=== PATIENT | female | born 1945 | race Caucasian/White ===

== ENCOUNTER 2023-08-15 17:57 | Emergency (ER) | payer MEDICARE, BC, SELFPAY ==
[2023-08-15 18:01] VITALS: BP 122/60
[2023-08-15 18:26] LABS: % Basophils 0.5 % (0-2); % Eosinophils 0.3 % (0-6); % Immature Granulocytes 0.5 % (0-0.5); % Lymphocytes 16.6 % (20.5-51.1); % Monocytes 4.7 % (1.7-9.3); % Neutrophils 77.4 % (42.2-75.2); Absolute Basophils 0.1 10^3/uL (0-0.2); Absolute Immature Granulocytes 0.1 10^3/uL (0-0.05); Absolute Lymphocytes 1.7 10^3/uL (1.2-3.4); Absolute Monocytes 0.5 10^3/uL (0.1-0.6); Hematocrit 34.9 % (37.0-47.0); Hemoglobin 11.6 g/dL (12.0-16.0); Mean Corp Hgb Conc. 33.2 g/dL (33.0-37.0); Mean Corpuscular Hgb 29.2 pg (27.0-31.0); Mean Corpuscular Volume 87.9 fL (81.0-99.0); Mean Platelet Volume 10.1 fL (7.4-10.4); Nucleated Red Blood Cells % 0 %; Platelet Count 244 10^3/uL (130-400); Red Blood Cell Count 3.97 10^6/uL (4.20-5.40); Red Cell Dist. Width 14.4 % (11.5-14.5); White Blood Cell Count 10.3 10^3/uL (4.8-10.8)
[2023-08-15 18:36] LABS: INR 1.05
[2023-08-15 18:44] LABS: ALT (SGPT) 18 U/L (0-35); AST (SGOT) 26 U/L (14-36); Albumin 3.8 g/dl (3.5-5.0); Alkaline Phosphatase 77 U/L (38-126); Blood Urea Nitrogen 13 mg/dl (7-17); Carbon Dioxide 23 mmol/L (22-30); Chloride 108 mmol/L (98-107); Glucose 128 mg/dl (70-99); Sodium 136 mmol/L (135-145); Total Bilirubin 0.6 mg/dl (0.2-1.3); Total Protein 6.2 g/dl (6.3-8.2); eGFR > 60.00
--- NOTE | 2023-08-15 19:59 | ED.GENMED ---
History of Present Illness
General
Chief Complaint: Rectal Bleeding
Source: patient
Exam Limitations: none
Time Seen by Provider: 08/15/23 19:47
Travel History
Have you had any contact with someone who has COVID-19?: No
Do you have any symptoms of coronavirus? Fever > 100 degrees, chills, cough, shortness of breath, sore throat, loss of taste or smell, muscle aches, or headache?: No
History of Present Illness
History of Present Illness:
See MDM
Past History
Past History
ED Past Medical History: CAD and HTN
ED Past Surgical History: Cardiac
Social History
Tobacco: Non-smoker
Alcohol: None
Phy Exam
Physical Exam
Physical Exam:
See MDM
Course
Orders/Labs/Results
Orders:
Orders
08/15/23 18:09
Type+Screen Urgent
08/15/23 18:16
Complete Blood Count/With Diff Urgent
Comprehensive Metabolic Panel Urgent
Prothrombin Time Urgent
Abnormal Lab Results
08/15/23
18:16
RBC 3.97 L 10^6/uL
(4.20-5.40)
Hgb 11.6 L g/dL
(12.0-16.0)
Hct 34.9 L %
(37.0-47.0)
Abs Immat Gran (auto) 0.1 H 10^3/uL
(0-0.05)
Absolute Neuts (auto) 8.0 H 10^3/uL
(1.4-6.5)
Neutrophils % 77.4 H %
(42.2-75.2)
Lymphocytes % 16.6 L %
(20.5-51.1)
Chloride 108 H mmol/L
(98-107)
Glucose 128 H mg/dl
(70-99)
Total Protein 6.2 L g/dl
(6.3-8.2)
08/15/23 18:16
08/15/23 18:16
Vital Signs
Initial and Last Documented VS:
Initial Vital Signs
Pulse Resp BP Pulse Ox
68 18 122/60 96
08/15/23 18:01 08/15/23 18:01 08/15/23 18:01 08/15/23 18:01
Last Documented Vital Signs
Pulse Resp BP Pulse Ox
68 18 122/60 96
08/15/23 18:01 08/15/23 18:01 08/15/23 18:01 08/15/23 18:01
MDM/Problems Addressed
Differential Diagnosis Includes:
HPI and MDM Narrative:
78-year-old female presenting with resolved rectal bleeding. Patient states she had diarrhea earlier in the day and there was some mild bleeding at her rectum. She then had a bowel movement at 1:30 PM and states there was bright blood in the
toilet. She is on aspirin and Plavix for recent cardiac stent. She called her vp training and was instructed to go to the hospital for evaluation. Patient denies abdominal pain or any bleeding since 1:30 PM
Patient is well-appearing nontoxic. She is not on a blood thinner. Hemoglobin is 11.6 which is close to baseline. Had a long discussion with patient in regards to admission for hemoglobin trending versus discharge. Patient states going home. I
did discuss the likelihood of recurrent but discussed strict return precautions. Patient does understand my concerns
Physical exam
General: Well appearing and non-toxic
HEENT: protecting airway
Neck: appears supple
CV: No evidence of cyanosis
Resp: No accessory muscle use
Abd: Non-distended. Soft and nontender
Extremities: No deformities
Neuro: alert
Psych: Normal affect
Skin: Intact
Rectal: Exam performed with nurse project scheduler collect. There is a large external hemorrhoid. Stool is brown but guaiac positive. No active bleeding noted
Problems Addressed including Acute and Chronic Conditions affecting care:
1. Rectal bleeding
Acuity: acute
Prognosis: stable
Details: Symptoms appear to have resolved since 1:30 PM. Hemoglobin stable to baseline
Updates
Had a long discussion with the patient in regards to admission versus discharge. She feels comfortable going home. Discussed talking to her wreath maker. She is already on Preparation H and a stool softener
Differential Diagnosis (but not limited to): Diverticulosis, internal hemorrhoids, external hemorrhoids
Testing considered: CT abdomen/pelvis but she has no abdominal pain or any evidence of brisk bleeding.
Drug therapy (if applicable): OTC meds, please see d/c instruction regarding Rx drugs
Amount and/or Complexity of Data Reviewed
Clinical info obtained from: Patient
External data reviewed: N/A
Labs I independently reviewed (but not limited to): Hemoglobin 11.6
Radiology: N/A
Pulse Ox: not hypoxic
EKG independently reviewed: N/A
Storekeeper Helper: N/A
Critical Care: N/A
Risk of Complication:
Social Determinants of health: Good social support
Discussed with other providers: N/A
Escalation of Care includes Admit/Obs: After being observed in the Emergency Department, pt stable for discharge.
Occasional wrong word or 'sound a like' substitutions may have occurred due to the inherent limitations of voice recognition software. Read the chart carefully and recognize, using context, where substitutions have occurred.
*Critical Care Note
Total Time (30-74mins, 75-104mins- exclusive of procedures): Not Applicable
ED Attending Note
-
Portions of this chart may have been created with voice recognition software.� Occasional wrong word or��sound alike� substitutions may have occurred due to the inherent limitations of voice recognition software.
Discharge Plan
Departure
Patient Disposition: Home (Routine Discharge)
Date of Disposition: 08/15/23
Time of Disposition: 20:57
Patient with high blood pressure during this ER visit?: No
Discharge Problem:
Rectal bleeding
Instructions: Hemorrhoid Banding
Prescriptions:
No Action
multivitamin Tablet
1 tab PO DAILY
pantoprazole 20 mg Tablet,Delayed Release (Dr/Ec)
20 mg PO DAILY
bupropion HCl 100 mg Tablet
100 mg PO DAILY
montelukast 10 mg Tablet
10 mg PO HS
lisinopril 5 mg Tablet
2.5 mg PO DAILY
albuterol sulfate [ProAir HFA] 90 mcg/actuation Hfa Aerosol Inhaler
2 puff INHALATION R Q6HPRN PRN (Reason: sob)
cholecalciferol (vitamin D3) [Vitamin D3] 25 mcg (1,000 unit) Capsule
50 mcg PO DAILY
B12 5,000-100 mcg Lozenge
1 rosendo SUBLINGUAL DAILY
Repatha SureClick 140 mg/mL Pen Injector
140 mg SC Q2W
aspirin 81 mg Tablet,Delayed Release (Dr/Ec)
81 mg PO DAILY
clopidogrel [clopidogrel] 75 mg tablet
75 mg PO DAILY Qty: 90 3RF
furosemide [Lasix] 20 mg tablet
20 mg PO DAILY Qty: 90 3RF
polyethylene glycol 3350 [Miralax] 17 gram Powder In Packet
5.69 g PO DAILY
metoprolol succinate [Toprol XL] 50 mg Tablet Extended Release 24 Hr
50 mg PO BID
metoprolol succinate [Toprol XL] 50 mg Tablet Extended Release 24 Hr
25 mg PO DAILYPRN PRN (Reason: rapid heart rate)
loperamide 2 mg Tablet
2 mg PO Q4HPRN PRN (Reason: diarrhea)
zinc sulfate 50 mg zinc (220 mg) Tablet
50 mg PO DAILY
fluticasone propionate [Flovent HFA] 110 mcg/actuation Hfa Aerosol Inhaler
1 puff INHALATION R BID
amlodipine 2.5 mg tablet
2.5 mg PO QPM
Referrals:
Jess Casey MD [Family Provider] -
Activity Restrictions/Additional Instructions:
Please return for any worsening symptoms.
You may return at any time if you have further concerns.
Please follow up with your doctor at the first available appointment, preferably this week.
Please talk to your wreath maker about your intermittent bleeding and your hemorrhoids. In the meantime, continue the stool softener and the Preparation H.
Thank you for choosing [facility].
Interventions
Interventions:
*Risk Screen - Suicide Last Done: 08/15/23 18:01
*General Assessment Last Done: 08/15/23 18:01
*Neglect/Abuse Screening Last Done: 08/15/23 18:01
[2023-08-15 21:05] VITALS: BP 131/57
== END 2023-08-15 21:05 | disposition home or self-care (01) ==
LOC: EMR 17:57
PROVIDERS: Emergency Medicine; EMERGENCY PHYSICIAN Student in an Organized Health Care Education/Training Program; FAMILY PHYSICIAN Internal Medicine
DX: K62.5 Hemorrhage of anus and rectum (principal); R19.7 Diarrhea, unspecified; K64.4 Residual hemorrhoidal skin tags; I25.10 Atherosclerotic heart disease of native coronary artery without angina pectoris; I10 Essential (primary) hypertension; Z95.5 Presence of coronary angioplasty implant and graft; Z79.82 Long term (current) use of aspirin; Z79.02 Long term (current) use of antithrombotics/antiplatelets; Z88.1 Allergy status to other antibiotic agents; Z88.2 Allergy status to sulfonamides; Z88.8 Allergy status to other drugs, medicaments and biological substances
CPT/HCPCS: 99283; 80053; 85025; 85610

== ENCOUNTER → 2023-09-07 15:16 | Outpatient (REF) | payer MEDICARE, BC, SELFPAY | LOC: HWWDC 15:16 | PROVIDERS: ATTENDING PHYSICIAN Internal Medicine | DX: Z12.31 Encounter for screening mammogram for malignant neoplasm of breast (principal) | CPT/HCPCS: 77063; 77067 ==

== ENCOUNTER → 2024-02-13 13:07 | Outpatient (REF) | payer MEDICARE, BC, SELFPAY | LOC: HWRAD 13:07 | PROVIDERS: ATTENDING PHYSICIAN Internal Medicine | DX: R10.10 Upper abdominal pain, unspecified (principal) | CPT/HCPCS: 76700 ==

== ENCOUNTER → 2024-03-06 09:11 | Outpatient (REF) | payer MEDICARE, BC, SELFPAY ==
[2024-03-06 12:09] LABS: ALT (SGPT) 15 U/L (0-35); AST (SGOT) 25 U/L (14-36); HDL Cholesterol 72 mg/dl; LDL Cholesterol, Calculated 66 mg/dl; Total Cholesterol 165 mg/dl (50-199); Triglyceride 137 mg/dl (10-149); Very Low Density Lipoprotein 27 mg/dl (0-30)
== END ==
LOC: REG 09:11
PROVIDERS: ATTENDING PHYSICIAN Internal Medicine Cardiovascular Disease; FAMILY PHYSICIAN Internal Medicine
DX: I10 Essential (primary) hypertension (principal); E78.5 Hyperlipidemia, unspecified
CPT/HCPCS: 36415; 80061; 84450; 84460

== ENCOUNTER 2024-04-16 06:21 | Day surgery (SDC) | payer MEDICARE, BC, SELFPAY ==
[2024-04-16 07:15] VITALS: BMI 31.1
[2024-04-16 07:25] VITALS: BP 149/74
[2024-04-16 07:33] VITALS: BMI 31.1
[2024-04-16 09:02] VITALS: BP 111/65
[2024-04-16 09:15] VITALS: BP 124/82
[2024-04-16 09:30] VITALS: BP 119/76
[2024-04-16 09:45] VITALS: BP 133/71
== END 2024-04-16 10:10 | disposition home or self-care (01) ==
LOC: GI 06:21
PROVIDERS: ATTENDING PHYSICIAN Internal Medicine Gastroenterology
DX: D12.3 Benign neoplasm of transverse colon (principal); K57.30 Diverticulosis of large intestine without perforation or abscess without bleeding; K64.0 First degree hemorrhoids; Z79.02 Long term (current) use of antithrombotics/antiplatelets
CPT/HCPCS: 45390; 45385; 88305

== ENCOUNTER → 2024-04-29 14:59 | Outpatient (REF) | payer MEDICARE, BC, SELFPAY ==
[2024-04-29 16:58] LABS: Urine Albumin Negative (Neg - Trace); Urine Bilirubin Negative (Negative); Urine Character Clear (Clear); Urine Color Straw; Urine Glucose Negative (Negative); Urine Ketone Negative (Negative); Urine Leukocyte 2+ (Negative); Urine Nitrite Negative (Negative); Urine Occult Blood Negative (Negative); Urine Specific Gravity 1.005 (<1.030); Urine Urobilinogen Negative (Neg - 1+)
[2024-04-29 17:19] LABS: Urine Bacteria Many (Negative); Urine Red Blood Cell 0-2 /HPF (0-2); Urine Squamous Cell 0-2 /LPF (Few); Urine White Cell 30-40 /HPF (0-5)
== END ==
LOC: REG 14:59
PROVIDERS: ATTENDING PHYSICIAN Internal Medicine
DX: R30.0 Dysuria (principal)
CPT/HCPCS: 81003; 81015; 87086

== ENCOUNTER → 2024-08-28 10:09 | Outpatient (REF) | payer MEDICARE, BC, SELFPAY ==
[2024-08-28 11:35] LABS: % Basophils 0.6 % (0-2); % Eosinophils 1.9 % (0-6); % Immature Granulocytes 0.3 % (0-0.5); % Lymphocytes 32.1 % (20.5-51.1); % Monocytes 7.9 % (1.7-9.3); % Neutrophils 57.2 % (42.2-75.2); Absolute Eosinophils 0.1 10^3/uL (0-0.7); Absolute Monocytes 0.5 10^3/uL (0.1-0.6); Absolute Neutrophils 3.5 10^3/uL (1.4-6.5); Hematocrit 41.3 % (37.0-47.0); Hemoglobin 13.1 g/dL (12.0-16.0); Mean Corp Hgb Conc. 31.7 g/dL (33.0-37.0); Mean Corpuscular Hgb 28.9 pg (27.0-31.0); Mean Corpuscular Volume 91.2 fL (81.0-99.0); Mean Platelet Volume 10.7 fL (7.4-10.4); Nucleated Red Blood Cells % 0 %; Platelet Count 202 10^3/uL (130-400); Red Blood Cell Count 4.53 10^6/uL (4.20-5.40); Red Cell Dist. Width 14.3 % (11.5-14.5); White Blood Cell Count 6.2 10^3/uL (4.8-10.8)
[2024-08-28 14:43] LABS: TSH Reflex To Free T4 1.81 uIU/ml (0.47-4.68)
[2024-08-28 15:18] LABS: ALT (SGPT) 17 U/L (0-35); AST (SGOT) 26 U/L (14-36); Albumin 4.3 g/dl (3.5-5.0); Alkaline Phosphatase 90 U/L (38-126); Blood Urea Nitrogen 14 mg/dl (7-17); Calcium 9.6 mg/dl (8.4-10.2); Carbon Dioxide 26 mmol/L (22-30); Chloride 104 mmol/L (98-107); Glucose 86 mg/dl (70-99); HDL Cholesterol 71 mg/dl; LDL Cholesterol, Calculated 56 mg/dl; Total Bilirubin 0.8 mg/dl (0.2-1.3); Total Cholesterol 154 mg/dl (50-199); Total Protein 6.4 g/dl (6.3-8.2); Triglyceride 138 mg/dl (10-149); Very Low Density Lipoprotein 27 mg/dl (0-30); eGFR > 60.00
[2024-08-28 15:45] LABS: Potassium 4.8 mmol/L (3.5-5.1); Sodium 140 mmol/L (135-145)
== END ==
LOC: REG 10:09
PROVIDERS: ATTENDING PHYSICIAN Internal Medicine; OTHER PHYSICIAN Internal Medicine Cardiovascular Disease
DX: I10 Essential (primary) hypertension (principal); E03.9 Hypothyroidism, unspecified; K21.9 Gastro-esophageal reflux disease without esophagitis; E78.5 Hyperlipidemia, unspecified
CPT/HCPCS: 36415; 80053; 80061; 84443; 85025

== ENCOUNTER → 2025-01-11 10:10 | Outpatient (REF) | payer MEDICARE, BC, SELFPAY | LOC: RCS 10:10 | PROVIDERS: ATTENDING PHYSICIAN Internal Medicine Cardiovascular Disease; FAMILY PHYSICIAN Internal Medicine | DX: R06.09 Other forms of dyspnea (principal); I25.10 Atherosclerotic heart disease of native coronary artery without angina pectoris | CPT/HCPCS: 93306 ==

== ENCOUNTER → 2025-05-06 12:39 | Outpatient (REF) | payer MEDICARE, BC, SELFPAY | LOC: WDC 12:39 | PROVIDERS: ATTENDING PHYSICIAN Internal Medicine | DX: Z12.31 Encounter for screening mammogram for malignant neoplasm of breast (principal) | CPT/HCPCS: 77063; 77067 ==

== ENCOUNTER 2025-05-14 06:23 | Day surgery (SDC) | payer MEDICARE, BC, SELFPAY | END 2025-05-14 14:43 | disposition home or self-care (01) | LOC: GI 06:23 | PROVIDERS: ATTENDING PHYSICIAN Internal Medicine | DX: Z12.11 Encounter for screening for malignant neoplasm of colon (principal); D12.0 Benign neoplasm of cecum; D12.3 Benign neoplasm of transverse colon; D12.4 Benign neoplasm of descending colon; D12.5 Benign neoplasm of sigmoid colon; K63.5 Polyp of colon; K57.30 Diverticulosis of large intestine without perforation or abscess without bleeding; K64.9 Unspecified hemorrhoids; Z86.0101 Personal history of adenomatous and serrated colon polyps; Z98.890 Other specified postprocedural states | CPT/HCPCS: 45385; 45380; 88305 ==